=== PATIENT | female | born 1975 | race Caucasian/White ===

== ENCOUNTER 2017-08-29 14:27 | Emergency (ER) | payer MEDICARE ==
[~2017-08-29] VITALS: Ht 175.3 cm; Wt 73.0 kg
[2017-08-29 14:28] VITALS: BP 138/75
[2017-08-29] MEDS ORDERED: HYDROcodone/APAP 7.5-325MG/15ML UDC ONE (14:52)
[2017-08-29] MEDS ORDERED: HYDROcodone/APAP 7.5-325MG/15ML UDC PO ONE (15:00)
== END 2017-08-29 15:33 | disposition home or self-care (01) ==
LOC: ED 15:25
DX: J02.9 Acute pharyngitis, unspecified (principal); R22.1 Localized swelling, mass and lump, neck
CPT/HCPCS: 87081; 87880; 99284